=== PATIENT | female | born 1985 | race African-American/Black ===

== ENCOUNTER 2017-11-29 18:06 | Emergency (ER) | payer MEDICAID ==
[2017-11-29] MEDS ORDERED: 0.9 % SODIUM CHLORIDE 1,000 ML BAG IV ONE (18:21)
--- NOTE | 2017-11-29 18:30 | Emergency Department Record ---
History of Present Illness - General Chief Complaint: Abdominal Pain Stated Complaint: BLOOD IN STOOL Time Seen by Provider: 11/29/17 18:20 Source: Patient Mode of Arrival: Ambulatory Limitations: No limitations - History of Present Illness Initial Comments: 32 yo female presents with three stools today where she noted some blood. The first time occurred at 10am. No fevers or chills. No vomiting. The stool is softer than normal. No history of GI disease. No recent travel or antibiotics. No history in the family of GI disease. She started Metformin yesterday for PCOS. Her PCP is in [place]. No other recent history. She reports vomiting and diarrhea about 5 times today. No recent antibiotics. MD Complaint: Abdominal pain, Other Location: Diffuse Radiation: None Migration to: No migration Severity: Mild Quality: Cramping Improves With: Nothing Worsens With: Nothing Associated Symptoms: Diarrhea, Hematochezia, Nausea - Related Data Patient : No Home Medications Medication Instructions Recorded Confirmed Last Taken Metformin HCl 850 mg PO DAILY 11/29/17 11/29/17 11/28/17 Previous Rx's Medication Instructions Recorded Hyoscyamine Sulfate [Levsin-Sl] 0.125 mg SL BID #10 tab.subl 11/29/17 Ondansetron [Zofran Odt] 4 mg PO Q8H #12 tab.rapdis 11/29/17 Allergies Allergy/AdvReac Type Severity Reaction Status Date / Time amoxicillin Allergy HIVES Verified 11/29/17 18:14 Travel Screening - Travel/Exposure Within Last 30 Days Have you traveled within the last 30 days?: No Review of Systems Constitutional: Denies: Chills, Fever, Malaise, Weakness Eyes: Denies: Eye discharge, Eye pain, Photophobia, Vision change ENT: Denies: Congestion, Throat pain Respiratory: Denies: Cough, Dyspnea, Hemoptysis, Stridor, Wheezes Cardiovascular: Denies: Chest pain, Palpitations, Syncope Endocrine: Denies: Fatigue, Polydipsia, Polyuria Gastrointestinal: Denies: Abdominal pain, Diarrhea, Nausea, Vomiting Genitourinary: Denies: Dysuria, Urgency Musculoskeletal: Denies: Arthralgia, Back pain, Myalgia, Neck pain Skin: Denies: Bruising, Change in color, Rash Neurological: Denies: Headache, Numbness Psychiatric: Denies: Anxiety Hematological/Lymphatic: Denies: Blood Clots, Easy bleeding, Easy bruising, Swollen glands Past Medical History - SOCIAL HISTORY Smoking Status: Never smoker Alcohol Use: None Drug Use: None - RESPIRATORY Hx Respiratory Disorders: No - CARDIOVASCULAR Hx Cardio Disorders: No - NEURO Hx Neuro Disorders: No - GI Hx GI Disorders: No - Hx Genitourinary Disorders: Yes Comment:: PCOS - ENDOCRINE Hx Endocrine Disorders: No - MUSCULOSKELETAL Hx Musculoskeletal Disorders: No - PSYCH Hx Psych Problems: No - HEMATOLOGY/ONCOLOGY Hx Hematology/Oncology Disorders: No Family Medical History Any Significant Family History?: No Physical Exam - General General Appearance: Alert, Oriented x3, Cooperative, No acute distress Limitations: No limitations - Head Head exam: Normal inspection - Eye Eye exam: Normal appearance, PERRL. negative: Conjunctival injection, Periorbital swelling, Scleral icterus - ENT ENT exam: Normal exam, Mucous membranes moist, Normal orophraynx Ear exam: Normal external inspection Nasal Exam: Normal inspection Mouth exam: Normal external inspection Throat exam: Normal inspection - Neck Neck exam: Normal inspection, Full ROM. negative: Tenderness - Respiratory Respiratory exam: Normal lung sounds bilaterally. negative: Respiratory distress, Rhonchi, Stridor, Wheezes - Cardiovascular Cardiovascular Exam: Regular rate, Normal rhythm, Normal heart sounds - GI/Abdominal GI/Abdominal exam: Soft. negative: Guarding, Rebound, Rigid, Tenderness - Rectal Rectal exam: Deferred - exam: Deferred - Extremities Extremities exam: Normal inspection, Full ROM, Normal capillary refill. negative: Tenderness - Back Back exam: Reports: Normal inspection - Neurological Neurological exam: Alert, Normal gait, Oriented X3 - Psychiatric Psychiatric exam: Normal affect, Normal mood - Skin Skin exam: Dry, Intact, Normal color, Warm Course Vital Signs 11/29/17 18:11 Temperature 98.1 F Pulse Rate 121 H Respiratory 20 Rate Blood Pressure 129/82 Pulse Ox 97 - Reevaluation(s) Reevaluation #1: The patient is refusing rectal examination 11/29/17 18:54 No acute changes on the CBC 11/29/17 18:55 Stool sample requested if she has a bowel movement. 11/29/17 19:05 No acute changes on the CMP No acute changes on the Lipase 11/29/17 19:18 HR much improved. The patient has some pain come and go. We discussed the risk and benefits of CT. She is in agreement at this time. 11/29/17 19:55 Doing well. Pain and nausea controlled. 11/29/17 20:09 HCG is negative 11/29/17 20:[address] demonstrates mild colon wall thickening of the transverse and descending colon that may represent under distention vs colitis NOS. The patient is well appearing, no fever or elevated WBC count. Her abdomen is very soft and non tender at this time. She will be sent home with instructions for liquid diet, Zofran and close follow up as well as reasons to return. Rx provided for stool sample if it occurs. Medical Decision Making - Lab Data Result diagrams: 11/29/17 18:30 11/29/17 18:30 Disposition Disposition: Discharge Clinical Impression: Colitis GI bleed Qualifiers: GI bleed type/associated pathology: unspecified gastrointestinal hemorrhage type Qualified Code(s): K92.2 - Gastrointestinal hemorrhage, unspecified Diarrhea Qualifiers: Diarrhea type: unspecified type Qualified Code(s): R19.7 - Diarrhea, unspecified Disposition: Home, Self-Care Condition: (1) Good Instructions: Colitis (ED) Additional Instructions: Call your doctor on Friday for close follow up Return to the ED for a recheck if you have any pain, nausea, return of blood or any new concerns You will need to see your doctor this week to discuss the test results and any further testing. The next 1-2 days eat mostly liquid diet, no fatty foods, stay well hydrated Bring your stool sample back to the hospital if obtained Prescriptions: Hyoscyamine Sulfate [Levsin-Sl] 0.125 mg SL BID #10 tab.subl Ondansetron [Zofran Odt] 4 mg PO Q8H #12 tab.rapdis Forms: Patient Portal Access Time of Disposition: 20:37 Quality - Quality Measures Quality Measures: N/A - Blood Pressure Screening Does Patient Have Any of the Following: No Blood Pressure Classification: Pre-Hypertensive BP Reading Systolic Measurement: 129 Diastolic Measurement: 82 Screening for High Blood Pressure: < Pre-Hypertensive BP, F/U Documented > [ [id number]] Pre-Hypertensive Follow-up Interventions: Referral to alternative/primary care provider.
[2017-11-29 18:40] LABS: BASO % 0.1 % (0-6); EOS % 1.3 % (0-6); GRAN % 75.3 % (47-80); HEMATOCRIT 36.5 % (35.0-47.0); HEMOGLOBIN 11.8 gm/dl (11.6-16.0); LYMPH % 18.4 % (16-45); MEAN CELL VOLUME 79.7 fl (81-97); MEAN CORPUSCULAR HEMOGLOBIN 25.8 pg (27-33); MEAN CORPUSCULAR HGB CONC 32.3 g/dl (32-36); MEAN PLATELET VOLUME 9.1 fl (7.4-10.4); MONO % 4.9 % (0-9); PLATELET COUNT 347 K/uL (130-400); RED BLOOD COUNT 4.58 M/uL (3.80-5.40); RED CELL DISTRIBUTION WIDTH 13.5 % (11.5-14.5); WHITE BLOOD COUNT W/O DIFF 8.3 K/uL (4.2-12.2)
[2017-11-29 18:53] LABS: BLOOD UREA NITROGEN 13 mg/dL (6-20); CREATININE 0.7 mg/dL (0.5-0.9); EST GLOMERULAR FILTRATION RATE > 60 mL/min
[2017-11-29 18:54] LABS: TOTAL PROTEIN 8.2 g/dL (6.6-8.7)
[2017-11-29 18:56] LABS: GLUCOSE,RANDOM 130 mg/dL (74-109)
[2017-11-29 18:58] LABS: ALT/SGPT 31 U/L (<33)
[2017-11-29 18:59] LABS: ALB/GLOB RATIO 1.1 (1.1-1.8); ALBUMIN 4.2 g/dL (4.0-5.0); ALKALINE PHOSPHATASE 68 U/L (35-104); AST/SGOT 22 U/L (10.0-35.0); LIPASE 26 U/L (13-60)
[2017-11-29] MEDS ORDERED: ACETAMINOPHEN 1,000 MG/100 ML BTL IVPB ONE (19:08)
[2017-11-29] MEDS ORDERED: ONDANSETRON 4 MG ODT TABLET SL ONE (20:37)
[2017-11-29] MEDS ORDERED: HYOSCYAMINE SULFATE ODT 0.125 MG TAB.SUBL SL ONE ×2 (20:37→20:43)
--- NOTE | 2017-11-30 20:31 | CT SCAN REPORT ---
EXAM: CT SCAN ABDOMEN/PELVIS W CONTRAST HISTORY: PATIENT HAS BLOOD IN STOOL. TECHNIQUE/COMPARISON: Serial axial CT scan of the abdomen and pelvis was performed at 3.75 mm intervals from the dome of the diaphragm down to the pubic symphysis following the intravenous administration of 80 mL of Omnipaque-300. No comparison studies area available. FINDINGS: The lung windows of the lung bases demonstrate no CT evidence for focal infiltrate or pleural effusion. The visualized heart size and contour is within normal limits. The liver, spleen, pancreas, bilateral adrenal glands, gallbladder are unremarkable. There is no CT evidence of hydronephrosis or hydroureter. No renal calculi are noted. There is a simple cyst within the superior pole of the right kidney. The contour, caliber, and flow within the abdominal aorta is within normal limits. There is no CT evidence of retroperitoneal, pelvic, or inguinal lymphadenopathy. The bowel gas pattern is nonobstructive. Appendix is clearly visualized and there is no CT evidence of appendicitis. There is questionable colonic wall thickening within the distal transverse colon extending into the proximal descending colon. This finding may represent apparent colonic wall thickening from under-distention. Differential considerations for mild colonic wall thickening in this region include ischemic vs. inflammatory vs. infectious colitis. Clinical correlation is recommended. There is no CT evidence of free intraperitoneal air or free intraperitoneal fluid. The uterus is unremarkable. Urinary bladder is unremarkable. Questionable tubal ligation is identified bilaterally. Bone windows demonstrate no CT evidence of a fracture or dislocation of the visualized osseous structures. IMPRESSION: QUESTIONABLE COLONIC WALL THICKENING OF THE DISTAL TRANSVERSE AND DESCENDING COLON DISCUSSED ABOVE. THIS FINDING MAY BE APPARENT WALL THICKENING FROM UNDER-DISTENTION, HOWEVER, INFECTIOUS VS. INFLAMMATORY VS. ISCHEMIC COLITIS CANNOT BE ENTIRELY EXCLUDED. CLINICAL CORRELATION IS RECOMMENDED. JOB NUMBER: [id number] [facility]
== END 2017-11-29 20:55 | disposition home or self-care (01) ==
LOC: ER 18:06
DX: K92.1 Melena (principal); R11.2 Nausea with vomiting, unspecified; K52.9 Noninfective gastroenteritis and colitis, unspecified
CPT/HCPCS: 99284 ×2; 96365; 96361; 83690; 85025; 80053; 84703; 74177; Q9967; J1980; J7030

== ENCOUNTER 2018-12-25 04:39 | Emergency (ER) | payer BC, MEDICAID ==
[2018-12-25] MEDS ORDERED: HYOSCYAMINE SULFATE ODT 0.125 MG TAB.SUBL SL ONE (04:52)
--- NOTE | 2018-12-25 04:55 | Emergency Department Record ---
History of Present Illness - General Chief complaint: Nausea, Vomiting, Diarrhea Stated complaint: NAUSEA, DIARRHEA Time Seen by Provider: 12/25/18 04:50 Source: Patient Mode of Arrival: Ambulatory Limitations: No limitations - History of Present Illness Initial comments: 33 yo female presents to ED for evaluation of loose stools for the past 3 days. Patient reports decreased appetite, denies nausea and vomiting symptoms. Patient reports that she is able to drink fluids "but they run right through me ". Patient denies fevers, chills, or productive cough symptoms. Patient denies health problems at her baseline. MD complaint: Diarrhea Onset/Timin -: Days(s) Associated Abdominal Pain: No Consistency: Intermittent Improves with: None Worsens with: None Associated Symptoms: Denies other symptoms - Related Data Home Medications Medication Instructions Recorded Confirmed Last Taken Loperamide HCl [Loperamide] 1 - 2 tab PO DAILY 12/25/18 12/25/18 Unknown Previous Rx's Medication Instructions Recorded Ondansetron [Zofran Odt] 4 mg PO Q8H #12 tab.rapdis 11/29/17 Hyoscyamine Sulfate [Levsin-Sl] 0.25 mg SL Q8H PRN #15 tab.subl 12/25/18 Allergies Allergy/AdvReac Type Severity Reaction Status Date / Time amoxicillin Allergy HIVES Verified 11/29/17 18:14 Travel Screening - Travel/Exposure Within Last 30 Days Have you traveled within the last 30 days?: No Review of Systems Constitutional: Denies: Chills, Fever, Malaise, Night sweats Eyes: Denies: Eye discharge, Eye pain ENT: Denies: Congestion, Ear pain, Epistaxis Respiratory: Denies: Cough, Dyspnea Cardiovascular: Denies: Chest pain, Dyspnea on exertion Endocrine: Denies: Fatigue, Heat or cold intolerance Gastrointestinal: Reports: Diarrhea. Denies: Abdominal pain, Nausea, Vomiting Genitourinary: Denies: Incontinence, Retention Musculoskeletal: Denies: Arthralgia, Back pain Skin: Denies: Bruising, Change in color Neurological: Denies: Abnormal gait, Confusion, Headache, Seizure Psychiatric: Denies: Anxiety Hematological/Lymphatic: Denies: Anemia, Blood Clots Past Medical History - SOCIAL HISTORY Smoking Status: Never smoker Alcohol Use: None Drug Use: None - RESPIRATORY Hx Respiratory Disorders: No - CARDIOVASCULAR Hx Cardio Disorders: No - NEURO Hx Neuro Disorders: No - GI Hx GI Disorders: No - Hx Genitourinary Disorders: Yes Comment:: PCOS - ENDOCRINE Hx Endocrine Disorders: No - MUSCULOSKELETAL Hx Musculoskeletal Disorders: No - PSYCH Hx Psych Problems: No - HEMATOLOGY/ONCOLOGY Hx Hematology/Oncology Disorders: No Family Medical History Any Significant Family History?: No Physical Exam - General General Appearance: Alert, Oriented x3, Cooperative, No acute distress Limitations: No limitations - Head Head exam: Atraumatic, Normocephalic, Normal inspection Head exam detail: negative: Abrasion, Contusion, Monsalve's sign, General tenderness, Hematoma, Laceration - Eye Eye exam: Normal appearance. negative: Conjunctival injection, Periorbital swelling, Periorbital tenderness, Scleral icterus - ENT Ear exam: negative: Auricular hematoma, Auricular trauma Nasal Exam: negative: Active bleeding, Discharge, Dried blood, Foreign body Mouth exam: negative: Drooling, Laceration, Muffled voice, Tongue elevation - Neck Neck exam: Normal inspection. negative: Meningismus, Tenderness - Respiratory Respiratory exam: Normal lung sounds bilaterally. negative: Rales, Respiratory distress, Rhonchi, Stridor - Cardiovascular Cardiovascular Exam: Regular rate, Normal rhythm, Normal heart sounds - GI/Abdominal GI/Abdominal exam: Soft. negative: Rebound, Rigid, Tenderness - Rectal Rectal exam: Deferred - exam: Deferred - Extremities Extremities exam: Normal inspection. negative: Pedal edema, Tenderness - Back Back exam: Denies: CVA tenderness (R), CVA tenderness (L) - Neurological Neurological exam: Alert, Normal gait, Oriented X3 - Psychiatric Psychiatric exam: Normal affect, Normal mood - Skin Skin exam: Normal color. negative: Abrasion Type of lesion: negative: abrasion Course - Reevaluation(s) Reevaluation #1: 12/25/18 05:20 Laboratory studies were reviewed and are grossly unremarkable for an acute process. Patient was reassessed, reports improvement in her symptoms, and appears stable for discharge at this time. Medical Decision Making - Lab Data Result diagrams: 12/25/18 04:52 12/25/18 04:52 Disposition Disposition: Discharge Clinical Impression: Diarrhea Qualifiers: Diarrhea type: unspecified type Qualified Code(s): R19.7 - Diarrhea, unspecified Disposition: Home, Self-Care Condition: (2) Stable Instructions: Acute Diarrhea (ED) Additional Instructions: Return to ED if your symptoms worsen or if you have any concerns. Levsin as directed. Follow-up with your family doctor in 3-5 days as directed. Prescriptions: Hyoscyamine Sulfate [Levsin-Sl] 0.25 mg SL Q8H PRN #15 tab.subl PRN Reason: Abdominal Pain Forms: Patient Portal Access Time of Disposition: 05:22 Quality - Quality Measures Quality Measures: N/A - Blood Pressure Screening Does Patient Have Any of the Following: No Blood Pressure Classification: Normal BP Reading Systolic Measurement: 110 Diastolic Measurement: 69 Screening for High Blood Pressure: < Normal BP, F/U Not Required > [G8783]
[2018-12-25] MEDS ORDERED: 0.9 % SODIUM CHLORIDE 1000ML 1,000 ML IV SCH (05:00)
[2018-12-25 05:04] LABS: BASO % 0.1 % (0-6); EOS % 2.8 % (0-6); GRAN % 78.7 % (47-80); HEMATOCRIT 38.4 % (35.0-47.0); HEMOGLOBIN 12.5 gm/dl (11.6-16.0); LYMPH % 12.5 % (16-45); MEAN CELL VOLUME 80.8 fl (81-97); MEAN CORPUSCULAR HEMOGLOBIN 26.3 pg (27-33); MEAN CORPUSCULAR HGB CONC 32.6 g/dl (32-36); MEAN PLATELET VOLUME 8.7 fl (7.4-10.4); MONO % 5.9 % (0-9); PLATELET COUNT 308 K/uL (130-400); RED BLOOD COUNT 4.75 M/uL (3.80-5.40); RED CELL DISTRIBUTION WIDTH 13.2 % (11.5-14.5); WHITE BLOOD COUNT W/O DIFF 7.6 K/uL (4.2-12.2)
[2018-12-25] MEDS ORDERED: ONDANSETRON HCL IV 4 MG/2 ML VIAL IVP ONE (05:04)
[2018-12-25 05:12] LABS: BLOOD UREA NITROGEN 12 mg/dL (6-20); CREATININE 0.8 mg/dL (0.5-0.9); EST GLOMERULAR FILTRATION RATE > 60 mL/min
[2018-12-25 05:13] LABS: LIPASE 16 U/L (13-60); TOTAL PROTEIN 8.5 g/dL (6.6-8.7)
[2018-12-25 05:15] LABS: GLUCOSE,RANDOM 100 mg/dL (74-109)
[2018-12-25 05:17] LABS: ALT/SGPT 82 U/L (<33); AST/SGOT 33 U/L (10.0-35.0)
[2018-12-25 05:18] LABS: ALB/GLOB RATIO 0.9 (1.1-1.8); ALBUMIN 4.1 g/dL (4.0-5.0); ALKALINE PHOSPHATASE 64 U/L (35-104)
== END 2018-12-25 05:44 | disposition home or self-care (01) ==
LOC: ER 04:39
DX: R19.7 Diarrhea, unspecified (principal); R11.2 Nausea with vomiting, unspecified; R10.13 Epigastric pain
CPT/HCPCS: 99284 ×2; 96374; 96361; 83690; 85025; 80053; J1980; J2405; J7030